=== PATIENT | female | born 1990 | race Caucasian/White ===

== ENCOUNTER 2016-12-28 09:33 | Emergency (ER) | payer BC ==
[~2016-12-28 09:33] MED LIST: PRENATABS FA T1 EACH PO
[2016-12-28] MEDS ORDERED: ASPIR-LOW81 M1 PO (09:52)
[2016-12-28] MEDS ORDERED: PROGESTERONE100 M1 PO (09:52)
[2016-12-28 10:19] LABS: URINE BILIRUBIN NEGATIVE (NEG); URINE BLOOD LARGE (NEG); URINE GLUCOSE (UA) NEGATIVE (NEG); URINE KETONE NEGATIVE (NEG); URINE LEUKOCYTE ESTERASE POSITIVE (NEG); URINE NITRITE NEGATIVE (NEG); URINE PROTEIN NEGATIVE (NEG)
[2016-12-28 10:22] LABS: URINE APPEARANCE HAZY; URINE COLOR YELLOW
[2016-12-28 10:32] LABS: URINE RBC 15-20 /[HPF] (0-5)
[2016-12-28 10:33] LABS: URINE AMORPHOUS 2+; URINE BACTERIA 1+
[2016-12-28] MEDS ORDERED: MACROBID 100 M100 M1 PO (12:02)
== END 2016-12-28 12:34 ==
LOC: EDMED 09:33
PROVIDERS: Emergency Medicine
DX: O20.0 Threatened abortion (principal); O26.891 Other specified pregnancy related conditions, first trimester; R82.71 Bacteriuria; Z3A.01 Less than 8 weeks gestation of pregnancy

== ENCOUNTER 2017-01-15 15:05 | Day surgery (SDC) | payer BC ==
[~2017-01-15 15:05] MED LIST changes: +ASPIR-LOW81 M1 PO; +MACROBID 100 M100 M1 PO; +PROGESTERONE100 M1 PO
[2017-01-15 15:43] LABS: HGB-HEMOGLOBIN 12.2 gm/dl (12.0-15.5); MCV (MEAN CELL VOLUME) 85.1 fl (82.0-96.0); RED CELL DISTRIBUTION WIDTH 12.1 % (12.4-16.4)
[2017-01-15] MEDS ORDERED: AMPICILLIN TRI500 M1 PO (15:48)
== END 2017-01-15 20:15 ==
LOC: WSU 15:05 → SHSB 15:07 → PACU 17:55 → CAR1 18:55
PROVIDERS: Obstetrics & Gynecology
PROC: 0UDB7ZX Extraction of Endometrium, Via Natural or Artificial Opening, Diagnostic (ICD-10-PCS; principal; 2017-01-15)
DX: O03.4 Incomplete spontaneous abortion without complication (principal); O26.21 Pregnancy care for patient with recurrent pregnancy loss, first trimester; Z3A.01 Less than 8 weeks gestation of pregnancy; Z79.82 Long term (current) use of aspirin; Z79.899 Other long term (current) drug therapy
CPT/HCPCS: J3010